=== PATIENT | female | born 1955 | race Caucasian/White ===

== ENCOUNTER 2024-06-12 15:55 | Inpatient (IN) | payer OTHER ==
[~2024-06-12] VITALS: Ht 172.7 cm; Wt 81.2 kg
[2024-06-12] MEDS: SODIUM CHLORIDE 0.9% 1,000 ML IV ONE (16:15)
[2024-06-12 17:15] LABS: BASOPHILS % 0.2 % (0.0-2.0); DIFFERENTIAL COMMENT 0; EOSINOPHILS % 0.5 % (0.0-5.0); HEMATOCRIT. 39.5 % (36.0-48.0); HEMOGLOBIN. 12.2 g/dL (12.0-16.0); MEAN CORPUSCULAR HEMOGLOBIN 28.3 pg (28.0-32.0); MEAN CORPUSCULAR HGB CONC 30.7 g/dL (31.0-37.0); MEAN CORPUSCULAR VOLUME 92.2 fL (81.0-99.0); MEAN PLATELET VOLUME 8.4 fl (7.4-10.4); MONOCYTES % 5.5 % (2.0-8.0); NEUTROPHILS % 81.8 % (40.0-76.0); PLATELET 223 x1000/uL (130-400); RED BLOOD CELL COUNT 4.29 mill/uL (4.2-5.4); RED CELL DISTRIBUTION WIDTH 15.3 % (11.6-14.6); WHITE BLOOD COUNT 12.6 x1000/uL (4.5-11.0)
[2024-06-12 17:27] LABS: INR 1.1; PROTHROMBIN TIME 12.6 sec (9.6-11.0)
[2024-06-12 17:30] LABS: CALCIUM 9.6 mg/dL (8.7-10.4); CARBON DIOXIDE 17 mEq/L (21-32); CHLORIDE 107 mEq/L (98-107); POTASSIUM 3.7 mEq/L (3.5-5.1); SODIUM 139 mEq/L (136-145)
[2024-06-12 17:33] LABS: CREATININE 1.4 mg/dL (0.6-1.0)
[2024-06-12 17:34] LABS: GLUCOSE 187 mg/dL (70-105); UREA NITROGEN BLOOD 21 mg/dL (9-23)
[2024-06-12 17:35] LABS: ALANINE AMINOTRANSFERASE 32 IU/L (10-49); ALBUMIN 4.1 g/dL (3.2-4.8); ASPARTATE AMINOTRANSFERASE 48 IU/L (<34)
[2024-06-12 17:36] LABS: BILIRUBIN DIRECT 0.2 mg/dL (<=3.0); BILIRUBIN TOTAL 0.6 mg/dL (0.1-1.0); PROTEIN TOTAL 6.5 g/dL (6.0-8.3)
[2024-06-12 17:45] LABS: ETHANOL BLOOD < 10 mg/dL (<10); TROPONIN I HIGH SENSITIVITY < 4 ng/L (3.0-34)
[2024-06-12 21:00] LABS: CLARITY URINE CLEAR (CLEAR); COLOR URINE DARK YELLOW (YELLOW); GLUCOSE URINE NEGATIVE (NEGATIVE); KETONES URINE TRACE (NEGATIVE); LEUKOCYTE ESTERASE URINE 2+ (NEGATIVE); NITRITE URINE NEGATIVE (NEGATIVE); OCCULT BLOOD URINE NEGATIVE (NEGATIVE); PH URINE 5.5 (4.5-8.0); PROTEIN URINE 1+ (NEGATIVE); SPECIFIC GRAVITY URINE 1.019 (1.005-1.030)
[2024-06-12 21:16] LABS: *AMPHETAMINES SCREEN URINE NEGATIVE (NEGATIVE); *BARBITURATES SCREEN URINE NEGATIVE (NEGATIVE); *BENZODIAZEPINES SCREEN URINE NEGATIVE (NEGATIVE); *COCAINE SCREEN URINE NEGATIVE (NEGATIVE); METHADONE URINE SCREEN NEGATIVE (NEGATIVE); OPIATES URINE SCREEN NEGATIVE (NEGATIVE)
[2024-06-12 21:17] LABS: CANNABINOID URINE SCREEN NEGATIVE (NEGATIVE); ECSTASY MDMA SCREEN URINE NEGATIVE (NEGATIVE); PHENCYCLIDINE URINE SCREEN NEGATIVE (NEGATIVE)
[2024-06-12 21:21] LABS: BACTERIA URINE TRACE; RBC URINE 0-2 /hpf (0-2); SQUAMOUS EPITHELIAL CELL URINE FEW /lpf (RARE/1+)
[2024-06-12] MEDS: HYDROMORPHONE HCL/PF 2MG/ML INJ IV NR (22:25)
[2024-06-13] VITALS (7 sets, daily range): BP systolic 90–128; BP diastolic 42–59; PULSE 73–89; RESP 17–19; TEMP 36.16956–36.5848; O2SAT 95–99
[2024-06-13] MEDS ORDERED: IPRATROPIUM/ALBUTEROL 0.5-3(2.5)MG/3ML NEB HHN PRN (00:30)
[2024-06-13] MEDS ORDERED: ONDANSETRON HCL 4MG/2ML INJ IV PRN (00:30)
[2024-06-13] MEDS ORDERED: ACETAMINOPHEN 325MG TABLET PO PRN (00:30)
[2024-06-13] MEDS ORDERED: CLONIDINE 0.1MG TABLET PO PRN (00:30)
[2024-06-13] MEDS ORDERED: EFEX1 PO (01:40)
[2024-06-13] MEDS ORDERED: MELO-105 PO (01:40)
[2024-06-13] MEDS ORDERED: LISI10TA26 MT (01:40)
[2024-06-13] MEDS ORDERED: LEVO75TA PO (01:40)
[2024-06-13] MEDS: DEXT 5%/0.9% NACL 1,000 ML IV SCH (03:07)
[2024-06-13] MEDS: FERROUS SULFATE 325MG TABLET PO SCH (12:14)
[2024-06-13] MEDS: ACETAMINOPHEN 325MG TABLET PO PRN (12:14)
[2024-06-13] MEDS: HYDROMORPHONE HCL/PF 2MG/ML INJ IV PRN (14:19)
[2024-06-13] MEDS: PNEUMOCOCCAL 20-VAL CONJ-DIP CRM 0.5ML IM ONE (21:00)
[2024-06-14] VITALS: BP 119/42; PULSE 88; RESP 18; TEMP 36.3918; O2SAT 98
[2024-06-14 08:00] VITALS: BP 110/56; PULSE 88; RESP 18; TEMP 38.50308; O2SAT 95
[2024-06-14 12:16] VITALS: BP 109/48; PULSE 82; RESP 18; TEMP 37.2252; O2SAT 95
[2024-06-14 12:42] LABS: BASOPHILS % 0.3 % (0.0-2.0); EOSINOPHILS % 1.4 % (0.0-5.0); HEMOGLOBIN. 9.7 g/dL (12.0-16.0); LYMPHOCYTES % 10.9 % (20.0-50.0); MEAN CORPUSCULAR HEMOGLOBIN 29.1 pg (28.0-32.0); MEAN CORPUSCULAR HGB CONC 31.4 g/dL (31.0-37.0); MEAN CORPUSCULAR VOLUME 92.8 fL (81.0-99.0); MEAN PLATELET VOLUME 8.6 fl (7.4-10.4); NEUTROPHILS % 77.4 % (40.0-76.0); PLATELET 155 x1000/uL (130-400); RED BLOOD CELL COUNT 3.35 mill/uL (4.2-5.4); RED CELL DISTRIBUTION WIDTH 15.8 % (11.6-14.6); WHITE BLOOD COUNT 8.3 x1000/uL (4.5-11.0)
[2024-06-14 12:56] LABS: POTASSIUM 4.6 mEq/L (3.5-5.1)
[2024-06-14 12:57] LABS: CALCIUM 8.1 mg/dL (8.7-10.4)
[2024-06-14 13:02] LABS: CREATININE 1.1 mg/dL (0.6-1.0)
[2024-06-14 15:05] VITALS: BP 110/65; PULSE 82; TEMP 98; O2SAT 100
[2024-06-14 16:00] VITALS: BP 103/53; PULSE 72; RESP 18; TEMP 37.89192; O2SAT 97
[2024-06-14] MEDS: DOCUSATE SODIUM 100MG CAPSULE PO PRN (16:53)
[2024-06-14 17:09] VITALS: TEMP 37.11408
== END 2024-06-14 17:30 | disposition home or self-care (01) | DRG 438 ==
LOC: ER 15:55 → 6EST 22:38 → EDBEDREQ 22:45 → EDBEDREQTM 22:45
PROVIDERS: ADMIT Hospitalist; ATTEND Hospitalist
DX: K85.90 Acute pancreatitis without necrosis or infection, unspecified (principal); N17.0 Acute kidney failure with tubular necrosis; E87.20 Acidosis, unspecified; N39.0 Urinary tract infection, site not specified; K86.1 Other chronic pancreatitis; E03.9 Hypothyroidism, unspecified; I10 Essential (primary) hypertension; E86.0 Dehydration; F32.9 Major depressive disorder, single episode, unspecified; E55.9 Vitamin D deficiency, unspecified; Z96.643 Presence of artificial hip joint, bilateral; Z79.899 Other long term (current) drug therapy; Z87.442 Personal history of urinary calculi; Z88.5 Allergy status to narcotic agent; Z90.411 Acquired partial absence of pancreas; Z90.710 Acquired absence of both cervix and uterus; Z88.8 Allergy status to other drugs, medicaments and biological substances
CPT/HCPCS: 36415; 71045; 74176; 80048; 80076; 80305; 80320; 81003; 82962; 84484; 85025; 90732; 93005; 99291; C1893; J1171; J7030; J7042; G0480